=== PATIENT | female | born 1950 | race Caucasian/White ===

== ENCOUNTER 2024-07-26 06:17 | Observation (INO) ==
--- NOTE | 2024-07-10 07:28 | Anesthesiology Consultation ---
Date of Service July 10, 2024 Assessment & Plan (1) Encounter for pre-operative examination: Chart Review Chart Review: Acceptable Risk for Surgery and Patient NOT seen in Pre Admission Testing Consults Requested none History Surgery Operation Date: 07/18/24 09:35 Proposed Procedures p Left Shoulder Arthroscopy, Rotator Cuff Repair, Extensive Debridement, Acromioplasty, Biceps Tenodesis(Left) - Eric Cunningham DO Height/Weight Height: 5 ft 3.75 in Weight: 79.379 kg Allergies Allergy/AdvReac Type Severity Reaction Status Date / Time No Known Allergies Allergy Verified 07/09/24 07:54 Medications Home Medications Medication Instructions Recorded Confirmed Last Taken ibuprofen 200 mg tablet 200 mg PO QID PRN Pain 06/11/19 07/09/24 12/30/19 multivitamin (Daily Multi-Vitamin 1 tab PO DAILY 06/11/19 07/09/24 12/30/19 tablet) trazodone 150 mg tablet 75 mg PO HS 06/11/19 07/09/24 12/30/19 zolpidem 5 mg tablet 2.5 mg PO ONCE PRN sleep 06/11/19 07/09/24 Unknown calcium carbonate (Calcium 600) 600 mg PO DAILY 01/03/24 07/09/24 Unknown cholecalciferol (vitamin D3) 50 1,000 unit PO UD 01/03/24 07/09/24 Unknown mcg (2,000 unit) chewable tablet denosumab 60 mg/mL subcutaneous 60 mg subcut UD 01/03/24 07/09/24 Unknown syringe (Prolia) escitalopram oxalate 5 mg tablet 5 mg PO QAM 01/03/24 07/09/24 Unknown (Lexapro) olive leaf extract 250 mg capsule 250 mg PO DAILY 01/03/24 07/09/24 Unknown diclofenac sodium 20 2 pump topical BID #112 grams 06/06/24 07/09/24 Unknown mg/gram/actuation (2 %) topical soln metered-dose pump acetaminophen 500 mg tablet 1,000 mg PO TID PRN Pain 07/09/24 07/09/24 Unknown oxycodone 5 mg tablet 5 mg PO Q8H PRN pain #20 tabs 07/09/24 07/09/24 Unknown Past Medical History Medical History Right knee pain History of COVID-19 (2021) no hosp; resolved History of cervical fracture greenstick fracture Sciatica Spinal stenosis Osteoarthritis History of bleeding peptic ulcer History of basal cell cancer History of melanoma h/o radiation treatment Limb alert care status RUE History of breast cancer Rt - h/o chemo, rt mastectomy History of hepatitis C treated 1990 and reccurance 2001 Insomnia Past Family History Family History Other Breast cancer No family history of adverse response to anesthesia Past Surgical History Surgical History History of removal of ovarian cyst [place] teeth removed Hx of breast reconstruction bilat breast implants x 3 History of tonsillectomy History of wisdom tooth extraction History of breast biopsy History of bladder surgery TVT History of colonoscopy History of esophagogastroduodenoscopy (EGD) History of Mohs micrographic surgery for skin cancer History of basal cell carcinoma (BCC) excision History of melanoma excision History of right mastectomy Social History Smoking Status: Former smoker tobacco type: cigarettes Do You Dip or Chew Tobacco: No Smoking End Date: quit >20 yrs ago Hx Alcohol Use: No Hx Substance Use: No substance use type: does not use Testing Electrocardiogram Date: 06/04/24 Findings: + NSR @
--- NOTE | 2024-07-12 10:30 | PAT Medication Instructions ---
Medication Instructions Date of Service July 12, 2024 Home Medications Medication Instructions Recorded diclofenac sodium 20 2 pump topical BID #112 grams 06/06/24 mg/gram/actuation (2 %) topical soln metered-dose pump oxycodone 5 mg tablet 5 mg PO Q8H PRN pain #20 tabs 07/09/24 ibuprofen 200 mg tablet 200 mg PO QID PRN multivitamin (Daily Multi-Vitamin tablet) 1 tab PO DAILY trazodone 150 mg tablet 75 mg PO HS zolpidem 5 mg tablet 2.5 mg PO ONCE PRN calcium carbonate (Calcium 600) 600 mg PO DAILY cholecalciferol (vitamin D3) 50 mcg (2,000 unit) chewable tablet 1,000 unit PO UD denosumab 60 mg/mL subcutaneous syringe (Prolia) 60 mg subcut UD escitalopram oxalate 5 mg tablet (Lexapro) 5 mg PO QAM olive leaf extract 250 mg capsule 250 mg PO DAILY diclofenac sodium 20 mg/gram/actuation (2 %) topical soln metered-dose pump 2 pump topical BID acetaminophen 500 mg tablet 1,000 mg PO TID PRN oxycodone 5 mg tablet 5 mg PO Q8H PRN ASK your surgeon for instructions ibuprofen 200 mg tablet 200 mg PO QID PRN ASK your prescriber and surgeon denosumab 60 mg/mL subcutaneous syringe (Prolia) 60 mg subcut UD diclofenac sodium 20 mg/gram/actuation (2 %) topical soln metered-dose pump 2 pump topical BID STOP taking 2 weeks before surgery (or as soon as possible if surgery is within 2 weeks) olive leaf extract 250 mg capsule 250 mg PO DAILY DO NOT take the morning of surgery multivitamin (Daily Multi-Vitamin tablet) 1 tab PO DAILY calcium carbonate (Calcium 600) 600 mg PO DAILY cholecalciferol (vitamin D3) 50 mcg (2,000 unit) chewable tablet 1,000 unit PO UD Take morning of surgery With a small sip of water, OTHERWISE NOTHING TO EAT OR DRINK AFTER MIDNIGHT: escitalopram oxalate 5 mg tablet (Lexapro) 5 mg PO QAM acetaminophen 500 mg tablet 1,000 mg PO TID PRN(if needed) oxycodone 5 mg tablet 5 mg PO Q8H PRN(if needed) Take evening before surgery trazodone 150 mg tablet 75 mg PO HS zolpidem 5 mg tablet 2.5 mg PO ONCE PRN(if needed) acetaminophen 500 mg tablet 1,000 mg PO TID PRN(if needed) oxycodone 5 mg tablet 5 mg PO Q8H PRN(if needed) Other Notes If you have any questions please call us at [phone] or [phone] or [phone] or [phone]
--- NOTE | 2024-07-16 10:49 | Anesthesiology Consultation ---
Date of Service July 16, 2024 Assessment & Plan (1) Encounter for pre-operative examination: - Infectious disease screening: Per assessment on 07/16/24- No known recent infectious disease contacts or current infectious disease symptoms. - Outpatient joint assessment: Pt currently scheduled for inpatient pathway. If surgeon requests review for outpatient joint pathway, patient is not recommended candidate for outpatient joint program from anesthesia standpoint based on available information. - Previous anesthesia hx: Left knee arthroscopy (12/31/2019)- LMA#4, atraumatic placement x1, "initially jaw very tight.. had to mask down to place LMA" - RUE limb restriction Chart Review Chart Review: Acceptable Risk for Surgery and Patient seen in Pre Admission Testing Teaching & Discussion Pre-Anesthesia Teaching/Discussion Notes: Instructed NPO after midnight before surgery,except medications with 15 cc of water. Medication instructions provided according to the PAT guidelines. History Surgery Operation Date: 07/26/24 11:40 Proposed Procedures p Right Total Knee Arthroplasty - Eric Cunningham, Height/Weight Height: 5 ft 3.75 in Weight: 80.7 kg Allergies Allergy/AdvReac Type Severity Reaction Status Date / Time No Known Allergies Allergy Verified 07/09/24 07:54 Medications Home Medications Medication Instructions Recorded Confirmed Last Taken multivitamin (Daily Multi-Vitamin 1 tab PO DAILY 06/11/19 07/09/24 12/30/19 tablet) trazodone 150 mg tablet 75 mg PO HS 06/11/19 07/09/24 12/30/19 zolpidem 5 mg tablet 2.5 mg PO ONCE PRN sleep 06/11/19 07/09/24 Unknown calcium carbonate (Calcium 600) 600 mg PO DAILY 01/03/24 07/09/24 Unknown cholecalciferol (vitamin D3) 50 1,000 unit PO UD 01/03/24 07/09/24 Unknown mcg (2,000 unit) chewable tablet denosumab 60 mg/mL subcutaneous 60 mg subcut UD 01/03/24 07/09/24 Unknown syringe (Prolia) escitalopram oxalate 5 mg tablet 5 mg PO QAM 01/03/24 07/09/24 Unknown (Lexapro) olive leaf extract 250 mg capsule 250 mg PO DAILY 01/03/24 07/09/24 Unknown diclofenac sodium 20 2 pump topical BID #112 grams 06/06/24 07/09/24 Unknown mg/gram/actuation (2 %) topical soln metered-dose pump acetaminophen 500 mg tablet 1,000 mg PO TID PRN Pain 07/09/24 07/09/24 Unknown oxycodone 5 mg tablet 5 mg PO Q8H PRN pain #20 tabs 07/09/24 07/09/24 Unknown Past Medical History Medical History (Updated 07/16/24 @ 11:44 by Michelle Peterson) History of basal cell cancer History of bleeding peptic ulcer 1970 History of breast cancer Right - h/o chemo, right mastectomy History of cervical fracture Greenstick fracture (2017), treated/resolved with collar, surgical inter vention not needed History of COVID-19 (2021) Symptoms resolved History of hepatitis C Treated 1990, reccurence 2001 History of melanoma H/o radiation treatment Insomnia Limb alert care status RUE Osteoarthritis Partial thickness rotator cuff tear Right knee pain Sciatica Spinal stenosis Stress incontinence Improved with surgery, still having occasional nighttime episodes Exercise / Class Metabolic Activity III < 4 Walking/Shop/Light housework Past Family History Family History Other Breast cancer No family history of adverse response to anesthesia Past Surgical History Surgical History History of arthroscopy of knee Left knee arthroscopy (12/31/2019): LMA#4, atraumatic placement x1, "initially jaw very tight.. had to mask down to place LMA" History of basal cell carcinoma (BCC) excision History of bladder surgery TVT History of breast biopsy History of colonoscopy History of esophagogastroduodenoscopy (EGD) History of melanoma excision History of Mohs micrographic surgery for skin cancer History of removal of ovarian cyst History of right mastectomy History of tonsillectomy History of wisdom tooth extraction Hx of breast reconstruction B/L breast implants x 3 [place] teeth removed Past Anesthesia History No Hx of Anesthesia Complications and No Family Hx of Anesthesia Complications History of PONV No Hx of Motion Sickness and History of PONV Social History Smoking Status: Former smoker tobacco type: cigarettes Do You Dip or Chew Tobacco: No Smoking End Date: Quit >20 years ago Hx Alcohol Use: No Hx Substance Use: No substance use type: does not use Review of Systems Patient denies chest pain, shortness of breath, dyspnea on exertion, fever, chills, cough, wheezing. Physical Exam Vital Signs BP 114/64 P 63 TEMP 98.3 SP02 96%RA RESP 16 Physical Full cervical extension range of motion. Full TMJ range of motion. TMD 3 finger breaths Mallampati Score I Dentition: intact, + 2 caps (sides) Lungs: clear throughout to auscultation Cardiac: regular rate and rhythm, no murmurs noted Spine: normal Carotid arteries: negative bruit Extremities: no LE edema Lab Results Anesthesia Preop Results Results Anesthesia Widget: WBC 7.18 K/ul (4.8-10.8) 07/16/24 Hgb 13.3 g/dl (12.0-16.0) 07/16/24 Hct 39.0 % (37.0-47.0) 07/16/24 Plt 204 K/uL (130-400) 07/16/24 Na 136 mmol/L (136-145) 07/16/24 K 4.3 mmol/L (3.5-5.1) 07/16/24 Cl 102 mmol/L (98-107) 07/16/24 CO2 29 mmol/L (21-32) 07/16/24 BUN 16 mg/dl (6-23) 07/16/24 Creat 0.88 mg/dl (0.6-1.2) 07/16/24 Glucose Level 99 mg/dl (70-99(Fasting)) 07/16/24 PT 11.0 Seconds (9.0-12.0) 07/16/24 PTT 26 Seconds (21-31) 07/16/24 INR 1.0 (0.9-1.1) 07/16/24 Blood Type O Positive 07/16/24 Antibody Screen NEGATIVE 07/16/24 Testing Electrocardiogram Date: 06/04/24 Findings: + NSR @ (61) Chest X-Ray Date: 09/21/23 Findings: + NAD
[~2024-07-26 06:17] MED LIST: BUPIVACAINE 0.25% PF 30 ML VIAL ONE; BUPIVACAINE 0.5 % 5 MG/1 ML PF 10ML VIAL ONE
--- NOTE | 2024-07-26 06:31 | History & Physical Bridge Note ---
Date of Service July 26, 2024 History & Physical Bridge Note I have examined the patient, reviewed the History & Physical and in the interval since the performance of the History & Physical I have noted the following changes of clinical significance: no changes noted
[2024-07-26] MEDS ORDERED: ePHEDrine sulfate 50 MG/5 ML SYR ONE (06:41)
[2024-07-26] MEDS ORDERED: MIDAZOLAM HCL 1 MG/ML 2ML VIAL ONE (06:41)
[2024-07-26] MEDS ORDERED: PHENYLEPHRINE 100MCG/ML 5ML SYR ONE (06:41)
[2024-07-26] MEDS ORDERED: ONDANSETRON INJ 2 MG/ML 2 ML VIAL ONE (06:41)
[2024-07-26] MEDS ORDERED: PROPOFOL IV EMULSION 10 MG/ML 20 ML VIAL IV ONE ×2 (06:43→08:10)
[2024-07-26] MEDS ORDERED: PROMETHAZINE HCL 6.25 MG in SODIUM CHLORIDE 0.9% 50 ML IV PRN (06:46)
[2024-07-26] MEDS ORDERED: fentaNYL citrate PF 100 MCG/2 ML VIAL IV PRN (06:46)
[2024-07-26] MEDS ORDERED: ePHEDrine sulfate 50 MG/ML AMP IV PRN (06:46)
[2024-07-26] MEDS ORDERED: ATROPINE SULFATE 0.1 MG/ML 10ML SYR IV PRN (06:46)
[2024-07-26] MEDS ORDERED: ONDANSETRON INJ 2 MG/ML 2 ML VIAL IV PRN ×2 (06:46→14:04)
[2024-07-26] MEDS: LR 500ML BOLUS, THEN 15ML/HR IV SCH (07:18)
[2024-07-26] MEDS: FAMOTIDINE 20 MG TAB PO SCH (07:19)
[2024-07-26] MEDS: ACETAMINOPHEN 500 MG TAB PO SCH ×2 (07:19→14:35)
[2024-07-26] MEDS: dexAMETHasone**PF** 10 MG/ML VIAL IV SCH (07:19)
[2024-07-26] MEDS: GABAPENTIN 300 MG CAP PO SCH (07:19)
[2024-07-26] MEDS: LR 60ML/HR IV SCH (07:19)
[2024-07-26] MEDS: LACTATED RINGER'S 1,000 ML IV SCH (07:19)
[2024-07-26] MEDS: TRANEXAMIC ACID 1,000 MG **IV Pre-op IV SCH (07:43)
[2024-07-26] MEDS: ceFAZolin 2000MG 2,000 MG/15 ML SYR IV SCH (08:04)
[2024-07-26] MEDS: ROPIV 0.5% 246mg, Ketorolac 30mg, EPINEPHrine 0.5mg in NSS INFIL SCH (08:30)
[2024-07-26] MEDS: ORTHO JOINT ANESTHETIC ONE (08:30)
--- NOTE | 2024-07-26 09:02 | Operative Report ---
PG Post Operative Report Pre & Post Diagnosis Operation Date: 07/26/24 08:00 Pre-Op Diagnosis: Right Knee Arthritis Post-Op Diagnosis: Right Knee Arthritis I identified the patient and participated in the time-out.: Yes Procedure Operation Date: 07/26/24 08:00 Actual Procedures p Right Total Knee Arthroplasty(Right) - Eric Cunningham DO Surgeon Eric Cunningham DO [employer] Furnace Installer David Duque PA-C Estimated Blood Loss 50 Findings Consistent with Post-Op Diagnosis Specimens Right femoral and tibial bone Description of Procedure Implants used: I used a Claudia Persona total knee arthroplasty system with a size 6 standard femur, D tibia, 31 oval patella, and a size 13 medial congruent polyethylene bearing. All components were cemented in place with Biomet cement. Jose Alberto arrived [facility] for the above procedure. She was seen in the preoperative holding area and the operative extremity was identified and signed. She was given a preoperative antibiotic, TXA, a spinal anesthetic and an adductor nerve block. She was taken back to the operating room and laid on the table in supine position. She was given basic sedation. The operative knee was then prepped and draped in sterile fashion. A timeout was done, and the patient and the operative extremity was properly identified. A midline incision was made directly over the patella. Dissection was taken down to the extensor mechanism. A medial parapatellar arthrotomy was used. The medial retinaculum was released and the fat pad was mostly excised. The knee was flexed and the ACL, PCL, and meniscus were removed. A drill was sent down the center of the femoral canal followed by an intramedullary claire. Off that claire a distal femoral cutting block was placed. 9 mm was resected off the distal femur at 5 of valgus. A posterior referencing AP sizing guide was then placed on the distal femur. The femur measured to be a size 6. 2 drill holes were placed in 3 of external rotation. A 4-in-1 cutting block was then impacted into place. Anterior, posterior, and chamfer cuts were then made. The proximal tibia was then exposed. An external tibial alignment guide was placed. A tibial cut guide was then anchored in place and the proximal tibia was then resected. The posterior aspect of the knee was then opened up and any additional meniscus fragments and osteophytes were removed. The tibia measured to be a size D. The tibial plate was then placed in the appropriate rotation and the tibia was drilled and punched. Trial components were then placed. I used a size 13 medial congruent polyethylene insert. The knee was brought through a full range of motion and felt to be stable. The peg holes for the femoral component were then drilled. The patella was then everted and 9 mm was resected off the posterior aspect of the patella. The patella measured to be a size 31 oval. 3 peg holes were then drilled. A trial patella was placed. The knee was once again brought through a full range of motion and felt to be stable. Trial components were then removed. The surrounding soft tissues were injected with 100 cc of an orthopedic pain control cocktail. All components were then cemented into place with Biomet cement. The final polyethylene insert was then snapped into place. Once cement was dry the tourniquet was deflated. Hemostasis was obtained. A dilute betadyne lavage was then done for 3 minutes. The joint was then irrigated with normal saline solution. The medial parapatellar arthrotomy was then closed with #1 Vicryl suture. The skin was closed with 2-0 Vicryl, 3-0V lock suture, and ever. A soft compressive dressing was placed. She was then transferred to a hospital bed and taken to the postanesthesia care unit in stable condition. She tolerated the procedure well. David Duque PA-C, was present for the entire procedure. He was critical for patient positioning, prepping, draping, retraction exposure, wound closure and application of sterile dressing. I attest to the content of the Intraoperative Record and any orders documented therein. Any exceptions are noted below.
--- NOTE | 2024-07-26 09:46 | XRay Report ---
XR knee RT 1 or 2V routine CLINICAL HISTORY: Surgical Post Op COMPARISON: None FINDINGS: Right knee prosthesis shows no hardware complication. There is expected soft tissue gas. S kin ever are present. IMPRESSION: Unremarkable postoperative exam. ACT 112: Negative or not required by law. Electronically signed by: Grover Browne M.D. 07/26/2024 9:45 AM
--- NOTE | 2024-07-26 09:59 | Anesthesiology Progress Note ---
Date of Service July 26, 2024 Anesthesia Post Procedure Vital Signs Vital Signs: Temp Pulse Resp BP Pulse Ox O2 Del Method O2 Flow Rate 07/26/24 09:50 72 17 104/58 L 97 Room Air 07/26/24 09:40 71 17 99/48 L 97 Room Air 07/26/24 09:30 71 17 101/50 L 99 Oxymask 5 07/26/24 09:22 36.3 C L 78 20 92/52 L 98 Oxymask 5 07/26/24 07:00 36.8 C 69 20 131/66 95 Room Air Pain Intensity Right Knee: Pain Intensity: 3 Transfer of Care Handoff Completed per policy Notes Mental Status: alert / awake / arousable and participated in evaluation Patient Amnestic to Procedure: Yes Nausea / Vomiting: adequately controlled Pain: adequately controlled Airway Patency, RR, SpO2: stable & adequate BP & HR: stable & adequate Hydration State: stable & adequate Neuraxial Anesthesia: was administered and sensory block is resolving Anesthetic Complications: no major complications apparent and Pt Satisfied with anesthetic care
[2024-07-26] MEDS: TRANEXAMIC ACID 1,000 MG **IV Intra-op IV SCH (12:11)
[2024-07-26] MEDS ORDERED: oxyCODONE HCL IR 5 MG TAB (IMMEDIATE RELEASE) PO PRN (14:04)
[2024-07-26] MEDS ORDERED: NALOXONE HCL 0.4 MG/1 ML VIAL/CARP IV PRN (14:04)
[2024-07-26] MEDS ORDERED: MAGNESIUM HYDROXIDE SUSP 30 ML UDC PO PRN (14:04)
[2024-07-26] MEDS ORDERED: METOCLOPRAMIDE HCL INJ 5 MG/ML 2 ML VIAL IV PRN (14:04)
[2024-07-26] MEDS ORDERED: traMADol HCL 50 MG TABLET PO PRN (14:04)
[2024-07-26] MEDS ORDERED: bisacodyL 10 MG SUPP PR PRN (14:04)
[2024-07-26] MEDS ORDERED: HYDROmorphone INJ 0.5 MG/0.5 ML SYR IV PRN (14:04)
[2024-07-26] MEDS: KETOROLAC TROMETHAMINE 15 MG/ML VIAL IV SCH (14:35)
[2024-07-26] MEDS: ceFAZolin 1000MG 1,000 MG/7.5 ML SYR IV SCH (15:43)
[2024-07-26] MEDS: ASPIRIN 81 MG ECTAB PO SCH (20:18)
[2024-07-26] MEDS: DOCUSATE SODIUM 100 MG CAP PO SCH (20:18)
[2024-07-26] MEDS: SENNA 8.6 MG TAB PO SCH (20:18)
[2024-07-26] MEDS: traZODone HCL 50 MG TAB PO SCH (22:16)
[2024-07-27] MEDS: ZOLPIDEM TARTRATE 5 MG TAB PO PRN (01:28)
[2024-07-27 04:15] VITALS: O2SAT 95
[2024-07-27 07:20] VITALS: BP 106/65; PULSE 63; RESP 15; TEMP 99
--- NOTE | 2024-07-27 07:30 | Orthopedic Progress Note ---
Date of Service July 27, 2024 Assessment & Plan (1) Status post right knee replacement: Overall she is doing very well. She is not having much pain in the right knee. She will be seen by physical therapy today for ambulation and range of motion exercises. The nursing staff can change her dressing after physical therapy. She is on aspirin for DVT prophylaxis. She can be discharged to home later today. She will follow-up orthopedics in 2 weeks. Radha Abrams was seen and examined at bedside this morning. Overall she is doing very well. She is not having much pain in the right knee. She has been up and ambulating to the bathroom. She has no complaints.. Review of Systems All systems reviewed & are unremarkable except as noted in HPI & below. Physical Exam On physical exam of the right knee, the dressing is clean and dry. She is sitting and with the knee flexed at 90 degrees. She is neurovascular intact.. Results & Data Results & Data Laboratory Results . Diagnostic Findings Postoperative x-rays of the right knee show the prosthesis to be in anatomic alignment without any evidence of fracture complication, or loosening.. PG Care Time/CCT Total # of Minutes Spent Total Time Spent with Patient: Total time spent is greater than 50% in coordination of care (as documented) at patient's floor/unit and/or counseling patient: Coding Level of Care Code 34046 Post Operative Follow-Up Diagnoses Status post right knee replacement Z96.651
--- NOTE | 2024-07-27 07:31 | Discharge Summary ---
Date of Service July 27, 2024 Principal Diagnosis Same as "Discharge Diagnosis" noted below under Discharge Instructions. Discharge Exam On physical exam of the right knee, the dressing is clean and dry. She is sitting and with the knee flexed at 90 degrees. She is neurovascular intact.. Discharge Data Procedures Performed Operation Date: 07/26/24 08:00 Actual Procedures p Right Total Knee Arthroplasty(Right) - Eric Cunningham DO Ordered Studies 07/26/24 05:00 US - OR guided needle placemen Routine Hospital Course (1) Status post right knee replacement: On July 26, 2024 Jose Alberto arrived at [facility] and underwent a right knee replacement without complication. She had a general anesthetic. Postoperatively she was started on aspirin for DVT prophylaxis and transferred to the general orthopedic floors. Her hospital course was uneventful. On postop day #1, her vital signs were stable and her pain was well-controlled. She was able to participate well with physical therapy doing ambulation and range of motion exercises. She was then discharged to home. She will follow-up with orthopedics in 2 weeks. PG Care Time/CCT Total # of Minutes Spent Total Time Spent with Patient: Total time spent is greater than 50% in coordination of care (as documented) at patient's floor/unit and/or counseling patient: Discharge Plan Discharge Items Patient Disposition: Home - Self-Care Reason For Visit: Right Knee Arthritis Discharge Diagnosis: Right knee replacement Activity: Per Instructions section Non-emergency contact: Surgeon Call non-emergency contact if: your wound has increased redness and your wound has increased drainage Follow-up/Referrals: Cheryl Ford MD [Primary Care Provider] - Diet: Regular Addtl Attending Provider Instructions: Activity and Therapy Recommendations: * If you are using [facility] then therapy will be provided at your home until they feel you have accomplished all of your goals. * If you are using [facility] then Physical Therapy will be provided until they feel you are ready to start Outpatient Physical Therapy. * If you are not using home therapy then Outpatient Physical Therapy should start about 3-5 days from your day of surgery. Therapy will last about 6-10 weeks * It is important not to put a pillow under your knee when you are relaxing or sleeping. It is just as important to make sure you are getting your knee perfectly straight as it is to regain your knee bend. * You were shown a series of exercises in the hospital. Do these exercises three times each day including the exercises you were shown in physical therapy. * Get up and walk several times each day. For the first four weeks, try not to stand or walk for more than one hour at a time. If you do stand or walk for more than one hour, you will not hurt anything, but your leg will likely swell. * As you feel comfortable, you may change from the walker or crutches to a cane and then to independent walking. Medications: * Narcotic You will likely be sent home from the hospital with a prescription for the narcotic pain medication that worked best throughout your stay. * Cefadroxil -take the antibiotic twice a day for 10 days to help prevent infection. * Aspirin Most patients will be required to take Aspirin 81mg twice a day for 6 weeks after surgery. This is obtained [id number] and a prescription is not necessary. * Other medications may be prescribed for specific circumstances. If you have any questions, please call the office at . * Resume previous home medications unless otherwise instructed TEDs/Elastic Stockings: The white elastic stockings help limit swelling and prevent blood clots from forming in your legs.~ The more you wear them, the more they work. Wear them for six weeks. Dressing Care: The dressing can be changed after physical therapy on postop day #1. Daily dry dressing changes for a few days, especially if the incision is still draining some. If the incision is not draining then you may leave the ever open to air. If there is a little bit of drainage or if the ever are getting stuck on your clothing then cover the incision with a dry dressing. The ever will be removed at your 2 week follow-up appointment. Showering: You may shower 5 days from the day of surgery as long as the incision is no longer draining. You may shower with the ever exposed. Let soapy water run over the ever and pat them dry. Do not scrub or soak the incision. Diet: You may resume your previous diet. Things To Watch For: * Drainage from the incision site that occurs more than one week after your surgery. * Increased redness at the incision site. * Fever above 102 degrees Fahrenheit. * Unusual chest pain or shortness of breath. * Call [facility] at with any of the above problems Follow-Up Visit: Follow-up with Dr. Cunningham's office 2-3 weeks after your day of surgery. We will remove your ever and answer any questions. If you have any additional questions or concerns, Dr Cunningham is usually in the office at the same time and will be available An appointment was probably scheduled when you signed-up for surgery in the office. If you have any questions call Office Instructions: More detailed instructions as well as Frequently Asked Questions were provided in a folder by our office when you signed-up for surgery. Please review these instructions when you get home. If you have any further questions or concerns, please feel free to call the office at [phone] Pending Studies at Discharge: No Stand-Alone Forms: My [facility], Smoking Cessation Medications and DC Order Prescriptions: New cefadroxil 500 mg capsule 500 mg PO BID 10 Days Qty: 20 0RF oxycodone 5 mg tablet 5 mg PO Q6H PRN (Reason: pain) Qty: 30 0RF aspirin 81 mg Tablet,Delayed Release (Dr/Ec) 81 mg PO BID 42 Days Qty: 84 0RF Continued trazodone 150 mg tablet 75 mg PO HS zolpidem 5 mg tablet 2.5 mg PO ONCE PRN (Reason: sleep) multivitamin [Daily Multi-Vitamin] tablet 1 tab PO DAILY calcium carbonate [Calcium 600] 600 mg calcium (1,500 mg) tablet 600 mg PO DAILY cholecalciferol (vitamin D3) 50 mcg (2,000 unit) tablet,chewable 1,000 unit PO UD Rx Instructions: twice per wk escitalopram oxalate [Lexapro] 5 mg tablet 5 mg PO QAM Prolia 60 mg/mL syringe 60 mg subcut UD Patient Comments: last dose june every 6 months olive leaf extract 250 mg capsule 250 mg PO DAILY (DME) [facility] See Rx Instructions .MEDSUPPLY Qty: 1 0RF Rx Instructions: As directed diclofenac sodium 20 mg/gram /actuation(2 %) solution in metered pump w/sandy 2 pump topical BID Qty: 112 0RF Rx Instructions: apply to single affected knee acetaminophen [Tylenol Ex Str Arthritis Pain] 500 mg Tablet 1,000 mg PO TID PRN (Reason: Pain) Discontinued oxycodone 5 mg tablet 5 mg PO Q8H PRN (Reason: pain) Qty: 20 0RF Admission Data Admit Date/Time: 07/26/24 09:30 Attending Provider: Eric Cunningham Admit Provider: Eric Cunningham Primary Care Provider: Cheryl Ford
[2024-07-27] MEDS: dexAMETHasone 4 MG TAB PO SCH (08:36)
[2024-07-27] MEDS: ESCITALOPRAM OXALATE 10 MG TAB PO SCH (08:36)
[2024-07-27] MEDS: MULTIVITAMIN TAB PO SCH (08:36)
== END 2024-07-27 10:55 | disposition home or self-care (01) ==
LOC: ASU 06:17 → PACUINP 06:17 → 3E 14:00